=== PATIENT | female | born 1995 | race African-American/Black ===

== ENCOUNTER 2016-06-24 14:59 | Emergency (ER) | payer MEDICAID ==
[~2016-06-24] VITALS: Ht 160 cm; Wt 64.5 kg
[2016-06-24 15:08] VITALS: BP 124/78
[2016-06-24] MEDS ORDERED: PREN-96 PO (16:03)
== END 2016-06-24 16:16 | disposition still patient (30) ==
LOC: ER 15:10
DX: O26.892 Other specified pregnancy related conditions, second trimester (principal); Z3A.24 24 weeks gestation of pregnancy; R10.9 Unspecified abdominal pain

== ENCOUNTER 2016-06-24 15:40 | Observation (INO) | payer SELFPAY ==
[2016-06-24] MEDS ORDERED: PREN-96 PO (16:03)
[2016-06-24 16:47] LABS: Urine Bilirubin Negative (Negative); Urine Blood Negative /uL (Negative); Urine Color Yellow (Yellow); Urine Glucose Normal (Normal); Urine Ketone Negative (Negative); Urine Mucus FEW (None Seen); Urine Nitrite Negative (Negative); Urine RBC 5 /hpf (0 - 4); Urine Squamous Epithelial Cell FEW /hpf (<5); Urine Urobilinogen Normal (Negative); Urine pH 5.5 (5.0-8.0)
== END 2016-06-24 17:00 | disposition home or self-care (01) | DRG 781 ==
LOC: LDRP 15:40
PROVIDERS: ADMIT Specialist; ATTEND Specialist
DX: O26.892 Other specified pregnancy related conditions, second trimester (principal); R10.9 Unspecified abdominal pain; O36.8120 Decreased fetal movements, second trimester, not applicable or unspecified; Z3A.24 24 weeks gestation of pregnancy
CPT/HCPCS: 59025; 81001; 81002; G0378; G0434

== ENCOUNTER 2016-09-17 19:56 | Observation (INO) | payer MEDICAID ==
[~2016-09-17 19:56] MED LIST: PREN-96 PO
== END 2016-09-17 21:10 | disposition home or self-care (01) | DRG 566 ==
LOC: LDRP 19:56
PROVIDERS: ADMIT Obstetrics & Gynecology; ATTEND Obstetrics & Gynecology
DX: O62.9 Abnormality of forces of labor, unspecified (principal); Z3A.36 36 weeks gestation of pregnancy
CPT/HCPCS: 59025; 81002; G0378

== ENCOUNTER 2016-10-10 15:40 | Inpatient (IN) | payer MEDICAID ==
[~2016-10-10] VITALS: Ht 30.5 cm; Wt 0.5 kg
[2016-10-10] MEDS ORDERED: LACT. RINGERS/OXYTOCIN 20UNITS 1,000 ML IV SCH ×2 (17:01→19:45)
[2016-10-10] MEDS ORDERED: PREN-96 PO (17:06)
[2016-10-10] MEDS ORDERED: ACYC1CAP23 PO (17:07)
[2016-10-10] MEDS ORDERED: DOCU-94 PO (17:07)
[2016-10-10] MEDS ORDERED: NALBUPHINE HCL 10 MG/1ml INJECTION IV PRN (17:15)
[2016-10-10] MEDS ORDERED: WITCH HAZEL-GLYCERIN PAD TOP PRN (17:15)
[2016-10-10] MEDS ORDERED: DERMOPLAST 60ML BOTTLE TOP PRN (17:15)
[2016-10-10] MEDS ORDERED: PHISODERM TOP SOLN 240ML BTL TOP PRN (17:15)
[2016-10-10] MEDS: LACTATED RINGER'S 1,000 ML IV SCH ×2 (17:35→19:45)
[2016-10-10 18:19] LABS: Basophils # (auto) 0 uL; Basophils % (auto) 0.2 % (0.0-2.0); CONDITION Y; Eosinophils # (auto) 0.1 uL; Eosinophils % (auto) 0.6 % (0.0-7.0); Hematocrit 43.8 % (36.0-46.0); Hemoglobin 14.9 g/dL (12.2-16.2); Lymphocytes # (auto) 1.7 uL; Lymphocytes % (auto) 21.3 % (10.0-50.0); Mean Corpuscular Hemoglobin 33.8 pg (28.0-32.0); Mean Corpuscular Volume 99.3 fL (80.0-100.0); Mean Platelet Volume 8.2 fL (7.4-10.4); Monocytes # (auto) 0.9 uL; Monocytes % (auto) 11.7 % (0.0-12.0); Neutrophils # (auto) 5.2 uL; Neutrophils % (auto) 66.2 % (37.0-80.0); Platelet Count (auto) 197 10^3/uL (140-450); Red Cell Distribution Width 15.3 % (11.6-16.0); White Blood Cell 7.8 10^3/uL (4.4-10.8)
[2016-10-10 18:33] LABS: INR 0.9 (0.9-1.15); Partial Thromboplastin Time 30.3 sec (22.64-33.71); Prothrombin Time 9.8 sec (9.37-12.3)
[2016-10-10 18:34] LABS: Albumin 2.8 g/dL (3.4-5.0); BUN/Creatinine Ratio 11.8; Calcium 8.5 mg/dL (8.5-10.1); Potassium 3.5 mmol/L (3.5-5.1)
[2016-10-10 18:36] LABS: Bilirubin, Total 0.2 mg/dL (0.2-1.0); Total Protein 6.9 g/dL (6.4-8.2)
[2016-10-10 18:44] LABS: Urine Bilirubin Negative (Negative); Urine Blood TRACE /uL (Negative); Urine Ca Oxalate Crystal FEW (None Seen); Urine Color Yellow (Yellow); Urine Glucose Normal (Normal); Urine Ketone Negative (Negative); Urine Mucus FEW (None Seen); Urine Nitrite Negative (Negative); Urine RBC 1 /hpf (0 - 4); Urine Squamous Epithelial Cell FEW /hpf (<5); Urine Urobilinogen Normal (Negative)
[2016-10-10] MEDS ORDERED: TERBUTALINE SULFATE 1 MG/ML 1ML VIAL SC ONE (19:45)
[2016-10-10] MEDS ORDERED: ePHEDrine SULFATE 50 MG/ML AMP IV ONE (20:30)
[2016-10-10] MEDS ORDERED: LIDOCAINE HCL 2 %PF INJ 10ML AMP IJ ONE (20:30)
[2016-10-10] MEDS ORDERED: fentaNYL W ROPIVACAINE 150 ML EPI SCH (20:30)
[2016-10-10] MEDS ORDERED: fentaNYL CITRATE 100 MCG/2 ML VL IV ONE (20:30)
[2016-10-10] MEDS ORDERED: NALOXONE HCL 0.4 MG/ML VIAL IV ONE (20:30)
[2016-10-10] MEDS ORDERED: ceFAZolin 1GM/50ML D5W 50 ML IV SCH (22:00)
[2016-10-11] MEDS: LACTATED RINGER'S 1,000 ML IV SCH ×4 (01:01→18:05)
[2016-10-11] MEDS: ceFAZolin 1GM/50ML D5W 50 ML IV SCH ×3 (02:45→18:11)
[2016-10-11] MEDS ORDERED: METHYLERGONOVINE MALEATE 0.2 MG/ML AMP IM PRN (10:15)
[2016-10-11] MEDS ORDERED: LIDOCAINE 2%HCL (LOCAL ANESTH.) INJ 20ML MDV IJ ONE (10:15)
[2016-10-11] MEDS ORDERED: LIDOCAINE HCL 2 %PF INJ 10ML AMP IJ ONE (13:12)
[2016-10-11] MEDS ORDERED: fentaNYL CITRATE 100 MCG/2 ML VL ONE (13:12)
[2016-10-11] MEDS ORDERED: DIPHENOXYLATE W/ATROPINE 2.5 MG TAB ONE (15:01)
[2016-10-11] MEDS ORDERED: CARBOPROST TROMETHAMINE 250 MCG/1ML VIAL IM ONE ×2 (15:01→15:30)
[2016-10-11] MEDS ORDERED: ONDANSETRON HCL 4 MG/2 ML VIAL ONE (15:01)
[2016-10-11] MEDS ORDERED: CARBOPROST TROMETHAMINE 250 MCG/1ML VIAL IM SCH (15:30)
[2016-10-11] MEDS ORDERED: ONDANSETRON HCL 4 MG/2 ML VIAL IV PRN (15:30)
[2016-10-11] MEDS ORDERED: LACT. RINGERS/OXYTOCIN 20UNITS 500 ML IV ONE (15:37)
[2016-10-11] MEDS ORDERED: DIPHENOXYLATE W/ATROPINE 2.5 MG TAB PO ONE ×2 (15:45→17:00)
[2016-10-11] MEDS ORDERED: LACT. RINGERS/OXYTOCIN 20UNITS 1,000 ML IV SCH (16:37)
[2016-10-11] MEDS: IBUPROFEN 600 MG TAB PO PRN ×2 (17:10→23:06)
[2016-10-11 19:37] VITALS: BP 105/63
[2016-10-12] VITALS (7 sets, daily range): BP systolic 84–109; BP diastolic 36–70
[2016-10-12] MEDS ORDERED: TETANUS-DIPTH-ACEL PERTUSSIS 0.5ML SYRG IM ONE
[2016-10-12] MEDS: ceFAZolin 1GM/50ML D5W 50 ML IV SCH ×3 (02:00→17:30)
[2016-10-12 07:16] LABS: Basophils # (auto) 0 uL; Basophils % (auto) 0.2 % (0.0-2.0); CONDITION Y; Eosinophils # (auto) 0.1 uL; Eosinophils % (auto) 0.4 % (0.0-7.0); Hematocrit 30.5 % (36.0-46.0); Hemoglobin 10.8 g/dL (12.2-16.2); Lymphocytes # (auto) 2.1 uL; Lymphocytes % (auto) 12.7 % (10.0-50.0); Mean Corpuscular Hgb Conc. 35.3 g/dL (32.0-36.0); Mean Platelet Volume 8.1 fL (7.4-10.4); Monocytes # (auto) 1.4 uL; Monocytes % (auto) 8.3 % (0.0-12.0); Neutrophils # (auto) 13.1 uL; Neutrophils % (auto) 78.4 % (37.0-80.0); Platelet Count (auto) 160 10^3/uL (140-450); Red Cell Distribution Width 15.2 % (11.6-16.0); White Blood Cell 16.7 10^3/uL (4.4-10.8)
[2016-10-12] MEDS: IBUPROFEN 600 MG TAB PO PRN ×2 (08:06→21:34)
[2016-10-13] MEDS: ceFAZolin 1GM/50ML D5W 50 ML IV SCH (01:57)
[2016-10-13 03:36] VITALS: BP 100/48
[2016-10-13 06:40] VITALS: BP 129/50
[2016-10-13] MEDS: IBUPROFEN 600 MG TAB PO PRN (09:12)
[2016-10-13 11:40] VITALS: BP 122/70
== END 2016-10-13 12:25 | disposition home or self-care (01) | DRG 560 ==
LOC: LDRP 15:40 → OBSVTOIN 17:00 → LDRP 17:18
PROVIDERS: ADMIT Obstetrics & Gynecology; ATTEND Obstetrics & Gynecology
PROC: 10E0XZZ Delivery of Products of Conception, External Approach (ICD-10-PCS; principal; 2016-10-11)
PROC: 3E0S3CZ (ICD-10-PCS; 2016-10-11)
PROC: 00HU33Z Insertion of Infusion Device into Spinal Canal, Percutaneous Approach (ICD-10-PCS; 2016-10-11)
PROC: 0KQM0ZZ Repair Perineum Muscle, Open Approach (ICD-10-PCS; 2016-10-11)
DX: O69.1XX0 Labor and delivery complicated by cord around neck, with compression, not applicable or unspecified (principal); O72.1 Other immediate postpartum hemorrhage; O98.52 Other viral diseases complicating childbirth; O70.1 Second degree perineal laceration during delivery; O42.02 Full-term premature rupture of membranes, onset of labor within 24 hours of rupture; B00.9 Herpesviral infection, unspecified; Z91.19 Patient's noncompliance with other medical treatment and regimen; Z37.0 Single live birth; Z23 Encounter for immunization; Z3A.40 40 weeks gestation of pregnancy
CPT/HCPCS: 36415; 51702; 59025; 59409; 62282; 80053; 80307; 81001; 81002; 85025; 85610; 85730; 86850; 86900; 86901; 90472; 90715; 94762; 96361; 96366; 96372; G0378; J0690; J2405; J2590; J3010

== ENCOUNTER 2016-10-20 10:23 | Emergency (ER) | payer MEDICAID ==
[~2016-10-20] VITALS: Ht 162.6 cm; Wt 71.7 kg
[~2016-10-20 10:23] MED LIST changes: +ACYC1CAP23 PO; +DOCU-94 PO
[2016-10-20 11:09] VITALS: BP 115/58
== END 2016-10-20 11:39 | disposition home or self-care (01) ==
LOC: ER 10:23
DX: O90.89 Other complications of the puerperium, not elsewhere classified (principal); K64.4 Residual hemorrhoidal skin tags; Z79.899 Other long term (current) drug therapy

== ENCOUNTER 2017-03-28 10:13 | Emergency (ER) | payer MEDICAID ==
[~2017-03-28] VITALS: Ht 165.1 cm; Wt 52.2 kg
[2017-03-28 10:27] VITALS: BP 126/77
== END 2017-03-28 12:10 | disposition home or self-care (01) ==
LOC: ER 10:13
DX: J02.9 Acute pharyngitis, unspecified (principal); J06.9 Acute upper respiratory infection, unspecified

== ENCOUNTER 2017-10-28 15:06 | Emergency (ER) | payer MEDICAID, OTHER ==
[~2017-10-28] VITALS: Ht 160 cm; Wt 59.0 kg
[2017-10-28 15:29] VITALS: BP 106/76
[2017-10-28] MEDS ORDERED: SILVER SULFADIAZINE 1 % TOPICAL CREAM 50GM TOP ONE (18:03)
== END 2017-10-28 17:53 | disposition home or self-care (01) ==
LOC: ER 15:06
DX: T25.122A Burn of first degree of left foot, initial encounter (principal); T31.0 Burns involving less than 10% of body surface; X08.8XXA Exposure to other specified smoke, fire and flames, initial encounter; Y93.89 Activity, other specified; Y92.89 Other specified places as the place of occurrence of the external cause; Y99.8 Other external cause status
CPT/HCPCS: 16020

== ENCOUNTER 2017-10-31 12:18 | Emergency (ER) | payer OTHER ==
[~2017-10-31] VITALS: Ht 160 cm; Wt 61.2 kg
[2017-10-31 12:46] VITALS: BP 101/58
== END 2017-10-31 14:05 | disposition home or self-care (01) ==
LOC: ER 12:18
DX: T25.222D Burn of second degree of left foot, subsequent encounter (principal); X58.XXXD Exposure to other specified factors, subsequent encounter; Z88.8 Allergy status to other drugs, medicaments and biological substances

== ENCOUNTER 2017-11-22 15:05 | Emergency (ER) | payer MEDICAID, OTHER ==
[~2017-11-22] VITALS: Ht 160 cm; Wt 59.0 kg
[2017-11-22 15:33] VITALS: BP 108/76
== END 2017-11-22 18:06 | disposition home or self-care (01) ==
LOC: ER 15:10
DX: H60.92 Unspecified otitis externa, left ear (principal); N39.0 Urinary tract infection, site not specified; Z88.6 Allergy status to analgesic agent
CPT/HCPCS: 70450; 81025

== ENCOUNTER 2018-01-04 18:21 | Emergency (ER) | payer MEDICAID ==
[~2018-01-04] VITALS: Ht 160 cm; Wt 59.0 kg
[2018-01-04 18:40] VITALS: BP 115/76
[2018-01-04 19:10] LABS: Urine Bacteria FEW /hpf (None Seen); Urine Blood Negative /uL (Negative); Urine Mucus FEW (None Seen); Urine Specific Gravity 1.028 (1.001-1.035); Urine WBC 4 /hpf (0 - 5)
[2018-01-04] MEDS ORDERED: MEPERIDINE HCL (25 MG/ML) 1ML VIAL IM ONE (21:15)
== END 2018-01-04 23:49 | disposition home or self-care (01) ==
LOC: ER 18:21
DX: S13.4XXA Sprain of ligaments of cervical spine, initial encounter (principal); S00.83XA Contusion of other part of head, initial encounter; S00.31XA Abrasion of nose, initial encounter; M62.838 Other muscle spasm; Z88.6 Allergy status to analgesic agent; W22.8XXA Striking against or struck by other objects, initial encounter; Y93.89 Activity, other specified; Y92.89 Other specified places as the place of occurrence of the external cause; Y99.8 Other external cause status
CPT/HCPCS: 70450; 70486; 73562; 81001; 81025; 96372; 99285; J2175

== ENCOUNTER 2018-01-24 07:30 | Emergency (ER) | payer MEDICAID ==
[~2018-01-24] VITALS: Ht 162.6 cm; Wt 57.2 kg
[2018-01-24] MEDS ORDERED: SODIUM CHLORIDE 0.9% 1,000 ML IV ONE (07:45)
[2018-01-24 08:04] LABS: Basophils # (auto) 0 uL; Basophils % (auto) 0.1 % (0.0-2.0); Eosinophils # (auto) 0 uL; Eosinophils % (auto) 0.4 % (0.0-7.0); Hematocrit 47.8 % (36.0-46.0); Lymphocytes # (auto) 0.6 uL; Lymphocytes % (auto) 7.6 % (10.0-50.0); Mean Corpuscular Hemoglobin 30.3 pg (28.0-32.0); Mean Corpuscular Hgb Conc. 33.6 g/dL (32.0-36.0); Mean Corpuscular Volume 90.2 fL (80.0-100.0); Monocytes # (auto) 0.2 uL; Monocytes % (auto) 2.4 % (0.0-12.0); Neutrophils # (auto) 7.3 uL; Neutrophils % (auto) 89.5 % (37.0-80.0); Nucleated Red Blood Cells % 0.1 %; Platelet Count (auto) 206 10^3/uL (140-450); Red Cell Distribution Width 13.9 % (11.8-14.3); White Blood Cell 8.2 10^3/uL (4.4-10.8)
[2018-01-24] MEDS ORDERED: ONDANSETRON HCL 4 MG/2 ML VIAL IV ONE (08:15)
[2018-01-24 08:20] LABS: Albumin 4.3 g/dL (3.4-5.0); Potassium 3.8 mmol/L (3.5-5.1)
[2018-01-24 08:23] LABS: BUN/Creatinine Ratio 22.2; Bilirubin, Total 0.7 mg/dL (0.2-1.0); Total Protein 8.2 g/dL (6.4-8.2)
[2018-01-24 08:46] LABS: Urine WBC None Seen /hpf (0 - 5)
[2018-01-24 09:09] LABS: Urine Bacteria NONE SEEN /hpf (None Seen); Urine Blood Negative /uL (Negative); Urine Mucus FEW (None Seen); Urine Specific Gravity 1.032 (1.001-1.035)
[2018-01-24 09:13] LABS: Alcohol, Urine < 3.0 mg/dL (0-5); Amphetamine Screen, Urine NEGATIVE (NEGATIVE); Barbiturate Scree,Urine NEGATIVE (NEGATIVE); Benzodiazephine Screen, Urine NEGATIVE (NEGATIVE); Cannabinoid Screen, Urine NEGATIVE (NEGATIVE); Cocaine Screen, Urine NEGATIVE (NEGATIVE); Opiate Scree,Urine NEGATIVE (NEGATIVE); Phencyclidine Screen, Urine NEGATIVE (NEGATIVE)
[2018-01-24 09:35] VITALS: BP 102/68
== END 2018-01-24 09:38 | disposition home or self-care (01) ==
LOC: ER 07:30
DX: K52.9 Noninfective gastroenteritis and colitis, unspecified (principal); E86.0 Dehydration; Z88.8 Allergy status to other drugs, medicaments and biological substances; Z79.899 Other long term (current) drug therapy
CPT/HCPCS: 36415; 80053; 80307; 81001; 81025; 85025; 96361; 96374; 99284; J2405; J7030

== ENCOUNTER 2018-12-03 19:40 | Observation (INO) | payer MEDICAID ==
[~2018-12-03] VITALS: Ht 160 cm; Wt 59.0 kg
== END 2018-12-03 20:37 | disposition home or self-care (01) | DRG 566 ==
LOC: LDRP 19:40
PROVIDERS: ADMIT Specialist; ATTEND Specialist
DX: O62.9 Abnormality of forces of labor, unspecified (principal); Z87.891 Personal history of nicotine dependence; Z3A.33 33 weeks gestation of pregnancy
CPT/HCPCS: 59025; 81002; G0378

== ENCOUNTER → 2019-09-10 | Emergency (ER) | payer SELFPAY ==
[~2019-09-10] VITALS: Ht 160 cm; Wt 63.5 kg
[~2019-09-10] MED LIST changes: -ACYC1CAP23 PO; -DOCU-94 PO; +IOHEXOL 350 MG/ML 100ML IJ ONE; +NOREPINEPHRINE 8 MG/250ML KIT 250 ML IV ONE; +PROPOFOL 100 ML IV ONE
[2019-09-10 00:59] VITALS: BP 117/81
== END | disposition home or self-care (01) ==
LOC: ER 00:05
DX: M54.2 Cervicalgia (principal); Z53.21 Procedure and treatment not carried out due to patient leaving prior to being seen by health care provider
CPT/HCPCS: J2704